=== PATIENT | female | born 1965 | race Caucasian/White ===

== ENCOUNTER 2019-01-29 17:33 | Emergency (ER) | payer OTHER ==
[~2019-01-29] VITALS: Ht 167.6 cm; Wt 79.5 kg
[2019-01-29 17:38] VITALS: BP 151/90
[2019-01-29] MEDS ORDERED: TETanus/Pertussis (Acell)/Diphther VAC/PF (Tdap-Adult) 0.5ml syringe IMVAC ONE (17:55)
[2019-01-29] MEDS ORDERED: mupirocin 2% ointment 22GM TP STA (18:11)
[2019-01-29] MEDS ORDERED: CEPH-572 PO (18:16)
== END 2019-01-29 18:43 | disposition home or self-care (01) ==
LOC: ER 17:34
DX: S01.112A Laceration without foreign body of left eyelid and periocular area, initial encounter (principal); S80.212A Abrasion, left knee, initial encounter; S80.211A Abrasion, right knee, initial encounter; Z88.0 Allergy status to penicillin; Z79.2 Long term (current) use of antibiotics; W18.09XA Striking against other object with subsequent fall, initial encounter; Y93.89 Activity, other specified; Y92.89 Other specified places as the place of occurrence of the external cause; Y99.8 Other external cause status
CPT/HCPCS: 12011; 90471; 99284